=== PATIENT | male | born 1965 | race Caucasian/White ===

== ENCOUNTER 2017-11-10 23:19 | Emergency (ER) | payer OTHER ==
--- NOTE | 2017-11-11 00:01 | RAD ---
FOUR VIEW LEFT KNEE 11/10/17 INDICATION: Fall with pain and injury. FINDINGS: There is moderate joint capsular distention. Minimal osteophytosis. No fracture or dislocation. IMPRESSION: No acute osseous abnormality. Moderate joint capsular distention. Correlate clinically. POS: C
[2017-11-11] MEDS ORDERED: Ketorolac Tromethamine 60 MG/2 ML VIAL ONE (00:07)
== END 2017-11-11 01:05 | disposition home or self-care (01) ==
LOC: NAV ERS 23:19
DX: S83.92XA Sprain of unspecified site of left knee, initial encounter (principal); B20 Human immunodeficiency virus [HIV] disease; I10 Essential (primary) hypertension; Z79.899 Other long term (current) drug therapy; X50.9XXA Other and unspecified overexertion or strenuous movements or postures, initial encounter
CPT/HCPCS: 96372; J1885

== ENCOUNTER 2019-09-19 09:01 | Emergency (ER) | payer OTHER ==
[2019-09-19] MEDS ORDERED: Sodium Chloride 0.9% 1,000 ML ONE (09:46)
[2019-09-19 10:23] LABS: #Basophils 0.1 thou/uL (0.0-0.2); #Eosinphils 0.1 thou/uL (0.0-0.7); #Lymphocytes 0.8 thou/uL (1.20-3.40); #Monocytes 0.6 thou/uL (0.11-0.59); #Neutrophils 6.8 thou/uL (1.40-6.50); %Basophils 0.7 % (0.0-1.0); %Eosinophils 0.7 % (0.0-10.0); %Lymphocytes 9.6 % (21.0-51.0); %Monocytes 7.4 % (0.0-10.0); %Neutrophils 81.6 % (42.0-75.0); Hemoglobin 16.1 g/dL (14.0-18.0); Mean Corpuscular HGB CONC 33.8 g/dL (32.0-36.0); Mean Corpuscular Hemoglobin 32.8 pg (27.0-31.0); Mean Corpuscular Volume 97.1 fL (78.0-98.0); Mean Platelet Volume 7.2 fL (7.4-10.4); Platelet Count 324 thou/uL (130-400); RBC Distribution Width 12.2 % (11.5-14.5); Red Blood Cell (RBC) Count 4.91 mill/uL (4.70-6.10); White Blood Cell (WBC) Count 8.3 thou/uL (4.8-10.8)
[2019-09-19 10:27] LABS: Anion Gap 19 mmol/L (10-20); BUN (Urea Nitrogen) 25 mg/dL (8.4-25.7); CK (CPK) 33 U/L (30-200); Calc. Creatinine Clearance 0 mL/min (70-130); Carbon Dioxide 25 mmol/L (22-29); Chloride 98 mmol/L (98-107); Estimated GFR-MDRD 47; Glucose 118 mg/dL (70-105); Potassium 3.8 mmol/L (3.5-5.1); Sodium 138 mmol/L (136-145)
== END 2019-09-19 10:53 | disposition home or self-care (01) ==
LOC: NAV ERS 09:01
DX: E86.9 Volume depletion, unspecified (principal); N18.9 Chronic kidney disease, unspecified; R19.7 Diarrhea, unspecified; I10 Essential (primary) hypertension; B20 Human immunodeficiency virus [HIV] disease; E66.01 Morbid (severe) obesity due to excess calories; I87.8 Other specified disorders of veins; Z79.899 Other long term (current) drug therapy
CPT/HCPCS: 80048; 82550; 85025; 99284; J7050